=== PATIENT | male | born 1985 | race Caucasian/White ===

== ENCOUNTER 2017-10-26 20:49 | Emergency (ER) | payer SELFPAY ==
[~2017-10-26] VITALS: Ht 182.9 cm; Wt 76.7 kg
[2017-10-26] MEDS ORDERED: INHALER (21:18)
[2017-10-26 21:24] VITALS: BP 128/80
[2017-10-26] MEDS ORDERED: DOXYCYCLINE MO100 MG ORAL (21:44)
[2017-10-26] MEDS ORDERED: BENADRYL25 MG ORAL (21:44)
--- NOTE | 2017-10-26 21:44 | Emergency Room Report ---
History of Present Illness General Chief Complaint: Skin Rash/Abscess Source: Patient Present Illness HPI Is a 32-year-old male who is from [place]. He staying at a hostel. He woke up last couple day with redness on his body. Now is very itching. Was worried about bedbugs. He said he crush an insect yesterday and was bloody. He found his on his body. Denies any fever chills. Very itchy. No nausea no vomiting. No drainage. Allergies: Coded Allergies: GRASS POLLEN (Verified Allergy, Unknown, 10/26/17) Patient History Past Medical History: see triage record, old chart reviewed Past Surgical History: none Pertinent Family History: none Social History: Denies: smoking Immunizations: other Reviewed Nursing Documentation: PMH: Agreed; PSxH: Agreed Nursing Documentation-PMH Past Medical History: No Stated History Review of Systems Eye: Denies: eye pain, blurred vision ENT: Denies: ear pain, nose congestion, throat swelling Respiratory: Denies: cough, shortness of breath Cardiovascular: Denies: chest pain, palpitations Gastrointestinal: Denies: abdominal pain, diarrhea, nausea, vomiting Musculoskeletal: Denies: back pain, joint pain Skin: Reports: rash Neurological: Denies: headache, numbness Endocrine: Denies: increased thirst, increased urine Hematologic/Lymphatic: Denies: easy bruising All Other Systems: negative except mentioned in HPI Physical Exam Vital Signs Date Time Temp Pulse Resp B/P (MAP) Pulse Ox O2 Delivery O2 Flow Rate FiO2 10/26/17 21:08 97.9 63 18 128/80 97 97.9 vitals normal Sp02 EP Interpretation: reviewed, normal General Appearance: well appearing, no apparent distress, alert Head: normocephalic, atraumatic Eyes: bilateral eye PERRL, bilateral eye EOMI ENT: hearing grossly normal, normal pharynx Neck: full range of motion, supple, no meningismus Respiratory: chest non-tender, lungs clear, normal breath sounds Cardiovascular #1: regular rate, rhythm, no murmur Gastrointestinal: normal bowel sounds, non tender, no mass, no organomegaly, no bruit, non-distended Musculoskeletal: back normal, gait/station normal, normal range of motion Neurologic: alert, oriented x3 Psychiatric: mood/affect normal Skin: warm/dry, other - Patient has scattered erythematous raised lesions mostly on his back Medical Decision Making Diagnostic Impression: Primary Impression: Bed bug bite Qualified Codes: W57.XXXA - Bitten or stung by nonvenomous insect and other nonvenomous arthropods, initial encounter ER Course Patient with a bedbug bite to his body. No evidence of infection but we'll go ahead and put on antibiotics since symptoms appear to be worsening. No evidence of abscess. No evidence of necrotizing fasciitis. Last Vital Signs Date Time Temp Pulse Resp B/P (MAP) Pulse Ox O2 Delivery O2 Flow Rate FiO2 10/26/17 21:24 97.9 64 18 128/80 97 97.9 Status: unchanged Disposition: HOME, SELF-CARE Condition: Stable Scripts Doxycycline Monohydrate* (DOXYCYCLINE MONOHYDRATE*) 100 Mg Capsule 100 MG ORAL Q12H, #14 CAP 0 Refills Prov: CUCA JORDAN M.D. 10/26/17 Diphenhydramine Hcl* (BENADRYL*) 25 Mg Capsule 50 MG ORAL Q6H PRN for Itching, #20 CAP Prov: CUCA JORDAN M.D. 10/26/17 Additional Instructions: Follow-up with your doctor in 7 days. Return if worse. CUCA JORDAN M.D. Oct 26, 2017 21:44
[2017-10-26 22:08] VITALS: BP 120/80
== END 2017-10-26 22:10 | disposition home or self-care (01) ==
LOC: EMR 21:50
DX: R21 Rash and other nonspecific skin eruption (principal); W57.XXXA Bitten or stung by nonvenomous insect and other nonvenomous arthropods, initial encounter; Y93.89 Activity, other specified; Y92.59 Other trade areas as the place of occurrence of the external cause; Z91.048 Other nonmedicinal substance allergy status
CPT/HCPCS: 99284